=== PATIENT | female | born 1970 | race Two or more races ===

== ENCOUNTER 2019-11-21 18:12 | Inpatient (IN) | payer OTHER ==
[~2019-11-21] VITALS: Ht 162.6 cm; Wt 72.4 kg
[2019-11-21] MEDS ORDERED: fentaNYL PF VIAL 100 MCG/2 ML VIAL IVP ONE ×2 (18:30→18:45)
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
[2019-11-21] MEDS ORDERED: ETOMIDATE 20 MG/10 ML VIAL. IV ONE (18:45)
[2019-11-21 18:53] LABS: BASO # 0.1 x10^3/uL (0.0-0.2); BASO % 1 % (0-3); EOS # 0.1 x10^3/uL (0.0-0.7); EOS % 2 % (0-3); HEMATOCRIT 40.1 % (36.0-47.0); HEMOGLOBIN 13.5 g/dL (12.0-15.5); LYMPH % 30 % (24-48); MEAN CORPUSCULAR HEMOGLOBIN 30 pg (25-35); MEAN CORPUSCULAR HGB CONC 34 g/dL (31-37); MEAN CORPUSCULAR VOLUME 89 fL (79-100); MONO # 0.4 x10^3/uL (0.0-1.1); MONO % 6 % (0-9); NEUT # 4.1 x10^3/uL (1.8-7.7); NEUT % 61 % (31-73); PLATELET COUNT 225 x10^3/uL (140-400); RED BLOOD COUNT 4.53 x10^6/uL (3.50-5.40); WHITE BLOOD COUNT 6.7 x10^3/uL (4.0-11.0)
[2019-11-21 19:02] LABS: CREATININE 0.8 mg/dL (0.6-1.0); GFR 75.6; POTASSIUM 3.4 mmol/L (3.5-5.1)
[2019-11-21 19:08] LABS: ALBUMIN 3.8 g/dL (3.4-5.0); ALBUMIN/GLOBULIN RATIO 1.2 (1.0-1.7); MAGNESIUM 2.2 mg/dL (1.8-2.4); TOTAL BILIRUBIN 0.1 mg/dL (0.2-1.0); TOTAL PROTEIN 7.1 g/dL (6.4-8.2)
--- NOTE | 2019-11-21 19:22 | RAD ---
Exam: CT head and cervical spine without contrast INDICATION: Pain status post fall from 10 feet height, distracting injury TECHNIQUE: Sequential axial images through the head and cervical spine were obtained without the administration of IV contrast. Comparisons: None FINDINGS: Head: No focal parenchymal lesion or hemorrhage is identified. There is no midline shift or sulcal effacement. No acute vascular territory infarction is identified. Figueredo-white distinction is preserved. The ventricular system is within normal limits without compression hydrocephalus. The basal cisterns are well maintained. The visualized portions of the paranasal sinuses and mastoid air cells are well-pneumatized. No acute fractures. Cervical spine: Vertebral body heights and alignment are well-maintained. Fracture to the cervical spine is not identified. No significant spondylotic change in cervical spine. Visualized paraspinal soft tissues are unremarkable. IMPRESSION: 1. No acute intracranial abnormality. 2. Negative CT C-spine for acute traumatic injury. Exposure: One or more of the following in the visualized dose reduction techniques were utilized for this examination: 1. Automated exposure control 2. Adjustment of the MA and/or KV according to patient size Use of iterative of reconstructive technique Electronically signed by: Oh Goldberg MD (11/21/2019 7:19 PM) [id number]
--- NOTE | 2019-11-21 19:32 | RAD ---
CHEST AP ONLY, ANKLE RIGHT 3V, KNEE RIGHT 3V, PELVIS History: Cough, perioperative, fall from 10 feet Comparison: None. CHEST: Findings: AP view of the chest is submitted. Heart size is considered within normal limits. There is no convincing pleural fluid or pneumothorax, although limited evaluation in supine patient. No significant lung infiltrate is identified. No displaced rib fracture is identified by radiographs. Impression: 1. No convincing acute abnormality is identified. Right ankle radiographs: FINDINGS: 3 views of the right ankle are submitted. There is very comminuted and displaced and impacted fracture of the distal tibia with overriding of fracture fragments, superimposed over the talus. There is angulation at the level of the talus, apex directed more medially. There is also degree of rotation.. Proximal tibia fragments are displaced. Underlying talar fracture is difficult to exclude. IMPRESSION: 1.There is impacted, comminuted, and displaced fracture of the distal tibia, angulation or rotation of the adjacent talus. Underlying talar fracture is difficult to exclude. AP pelvis: FINDINGS: AP view of the pelvis is submitted. No acute fracture or dislocation is identified by radiograph. IMPRESSION: 1.No acute osseous abnormality is identified by radiograph. Right knee radiographs FINDINGS: 3 views of the right knee are submitted. No acute fracture or dislocation is identified. There is mild osteoarthritic change of the patellofemoral articulation. IMPRESSION: 1.No acute fracture is identified of the right knee by radiographs. Electronically signed by: Hudson Jade MD (11/21/2019 7:28 PM) [facility]
[2019-11-21 19:35] VITALS: BP 152/73
--- NOTE | 2019-11-21 20:13 | RAD ---
Exam: Right ankle 3 views INDICATION: Fracture/dislocation TECHNIQUE: Frontal, lateral and oblique views of the right ankle Comparisons: None FINDINGS: Evaluation of fine osseous detail limited secondary to overlying splint material. Comminuted distal tibia fracture is again noted improved alignment when compared to the prior exam. No other fractures are seen. Bone mineralization is normal. IMPRESSION: Improved alignment at the comminuted distal tibia fracture. Electronically signed by: Oh Goldberg MD (11/21/2019 8:10 PM) [id number]
[2019-11-21] MEDS ORDERED: KETOROLAC 15 MG/ML VIAL. IVP ONE (20:15)
[2019-11-21] MEDS ORDERED: IV NORMAL SALINE 1000ML BAG 1,000 ML IV ONE (20:15)
[2019-11-21] MEDS ORDERED: ONDANSETRON PF 4 MG/2 ML VIAL. IV PRN (20:15)
[2019-11-21 20:24] LABS: PROTHROMBIN TIME PATIENT 13.5 SEC (11.7-14.0)
[2019-11-21 21:31] VITALS: BP 131/69
[2019-11-22] VITALS (11 sets, daily range): BP systolic 106–153; BP diastolic 54–82
[2019-11-22] MEDS: fentaNYL PF VIAL 100 MCG/2 ML VIAL IV PRN ×10 (00:19→21:36)
[2019-11-22] MEDS: KETOROLAC 15 MG/ML VIAL. IVP SCH ×4 (01:15→20:01)
[2019-11-22] MEDS ORDERED: GABA-585 PO (01:20)
--- NOTE | 2019-11-22 08:21 | PDOC2 ---
CONSULT Date of Consult Date of Consult DATE: 11/22/19 TIME: 08:00 Reason for Consult Reason for Consult: Fall from a ladder and right ankle pain Referring Physician Referring Physician: Dr. Gonzáles Identification/Chief Complaint Chief Complaint Right ankle pain. Source Source: Caregiver, Chart review, Patient History of Present Illness Reason for Visit: Patient was at her home on a ladder approximately 10 feet in the air cleaning out gutters when she fell landing onto both feet primarily on the right ankle. Immediately had right ankle pain and was brought to [facility] by EMS. Past Medical History Cardiovascular: No pertinent hx Past Surgical History Past Surgical History: Social History Quit ALCOHOL: occassional (Patient drinks wine occasionally) Current Problem List Problem List Problems Medical Problems: (1) Ankle fracture, right Status: Acute (2) Fall from ladder Status: Acute Current Medications Current Medications Current Medications Fentanyl Citrate (Fentanyl 2ml Vial) 50 mcg 1X ONCE IVP Last administered on 11/21/19at 18:40; Start 11/21/19 at 18:30; Stop 11/21/19 at 18:32; Status DC Fentanyl Citrate (Fentanyl 2ml Vial) 100 mcg 1X ONCE IVP Last administered on 11/21/19at 19:22; Start 11/21/19 at 18:45; Stop 11/21/19 at 18:47; Status DC Etomidate (Amidate) 10 mg 1X ONCE IV Last administered on 11/21/19at 19:20; Start 11/21/19 at 18:45; Stop 11/21/19 at 18:47; Status DC Ketorolac Tromethamine (Toradol 15mg Vial) 15 mg 1X ONCE IVP Last administered on 11/21/19at 20:30; Start 11/21/19 at 20:15; Stop 11/21/19 at 20:16; Status DC Ondansetron HCl (Zofran) 4 mg PRN Q8HRS PRN IV NAUSEA/VOMITING; Start 11/21/19 at 20:15; Stop 11/22/19 at 20:14 Fentanyl Citrate (Fentanyl 2ml Vial) 50 mcg PRN Q2HRS PRN IV PAIN Last administered on 11/22/19at 04:38; Start 11/21/19 at 20:15 Ketorolac Tromethamine (Toradol 15mg Vial) 15 mg Q6H IVP Last administered on 11/22/19at 01:15; Start 11/22/19 at 02:00; Stop 11/27/19 at 01:59 Sodium Chloride 1,000 ml @ 100 mls/hr 1X ONCE IV Last administered on 11/21/19at 20:31; Start 11/21/19 at 20:15; Stop 11/22/19 at 06:15; Status DC Active Scripts Active Reported Gabapentin (Gabapentin) 100 Mg Capsule 100 Mg PO TID Allergies Allergies: Coded Allergies: No Known Drug Allergies (Unverified , 11/21/19) Physical Exam General: Alert, Oriented X3, Cooperative, moderate distress Extremities: No clubbing, No cyanosis, Normal pulses MUSCULOSKELETAL: Abnormal exam of right (Right ankle in a splint from the ER. Patient does have sensation on the toes distally on the right lower extremity. Patient is able to wiggle her toes on the right foot. Full range of motion of left lower extremity knee ankle and foot.) Vitals VITALS Vital Signs Date Time Temp Pulse Resp B/P (MAP) Pulse Ox O2 Delivery O2 Flow Rate FiO2 11/22/19 07:00 98.0 80 18 112/58 (76) 100 Room Air 98.0 11/22/19 00:49 5.0 Labs Labs Laboratory Tests Test 11/21/19 18:38 11/21/19 20:03 White Blood Count 6.7 x10^3/uL (4.0-11.0) Red Blood Count 4.53 x10^6/uL (3.50-5.40) Hemoglobin 13.5 g/dL (12.0-15.5) Hematocrit 40.1 % (36.0-47.0) Mean Corpuscular Volume 89 fL (79-100) Mean Corpuscular Hemoglobin 30 pg (25-35) Mean Corpuscular Hemoglobin Concent 34 g/dL (31-37) Red Cell Distribution Width 13.0 % (11.5-14.5) Platelet Count 225 x10^3/uL (140-400) Neutrophils (%) (Auto) 61 % (31-73) Lymphocytes (%) (Auto) 30 % (24-48) Monocytes (%) (Auto) 6 % (0-9) Eosinophils (%) (Auto) 2 % (0-3) Basophils (%) (Auto) 1 % (0-3) Neutrophils # (Auto) 4.1 x10^3/uL (1.8-7.7) Lymphocytes # (Auto) 2.0 x10^3/uL (1.0-4.8) Monocytes # (Auto) 0.4 x10^3/uL (0.0-1.1) Eosinophils # (Auto) 0.1 x10^3/uL (0.0-0.7) Basophils # (Auto) 0.1 x10^3/uL (0.0-0.2) Sodium Level 140 mmol/L (136-145) Potassium Level 3.4 mmol/L (3.5-5.1) Chloride Level 105 mmol/L (98-107) Carbon Dioxide Level 25 mmol/L (21-32) Anion Gap 10 (6-14) Blood Urea Nitrogen 21 mg/dL (7-20) Creatinine 0.8 mg/dL (0.6-1.0) Estimated GFR (Cockcroft-Gault) 75.6 BUN/Creatinine Ratio 26 (6-20) Glucose Level 108 mg/dL (70-99) Calcium Level 9.0 mg/dL (8.5-10.1) Magnesium Level 2.2 mg/dL (1.8-2.4) Total Bilirubin 0.1 mg/dL (0.2-1.0) Aspartate Amino Transf (AST/SGOT) 22 U/L (15-37) Alanine Aminotransferase (ALT/SGPT) 23 U/L (14-59) Alkaline Phosphatase 105 U/L (46-116) Creatine Kinase 180 U/L (26-192) Creatine Kinase MB (Mass) 1.4 ng/mL (0.0-3.6) Creatine Kinase MB Relative Index 0.8 % (0-4) Troponin I Quantitative < 0.017 ng/mL (0.000-0.055) Total Protein 7.1 g/dL (6.4-8.2) Albumin 3.8 g/dL (3.4-5.0) Albumin/Globulin Ratio 1.2 (1.0-1.7) Prothrombin Time 13.5 SEC (11.7-14.0) Prothromb Time International Ratio 1.1 (0.8-1.1) Activated Partial Thromboplast Time 25 SEC (24-38) Laboratory Tests Test 10/11/20 18:38 11/21/19 20:03 White Blood Count 6.7 x10^3/uL (4.0-11.0) Red Blood Count 4.53 x10^6/uL (3.50-5.40) Hemoglobin 13.5 g/dL (12.0-15.5) Hematocrit 40.1 % (36.0-47.0) Mean Corpuscular Volume 89 fL (79-100) Mean Corpuscular Hemoglobin 30 pg (25-35) Mean Corpuscular Hemoglobin Concent 34 g/dL (31-37) Red Cell Distribution Width 13.0 % (11.5-14.5) Platelet Count 225 x10^3/uL (140-400) Neutrophils (%) (Auto) 61 % (31-73) Lymphocytes (%) (Auto) 30 % (24-48) Monocytes (%) (Auto) 6 % (0-9) Eosinophils (%) (Auto) 2 % (0-3) Basophils (%) (Auto) 1 % (0-3) Neutrophils # (Auto) 4.1 x10^3/uL (1.8-7.7) Lymphocytes # (Auto) 2.0 x10^3/uL (1.0-4.8) Monocytes # (Auto) 0.4 x10^3/uL (0.0-1.1) Eosinophils # (Auto) 0.1 x10^3/uL (0.0-0.7) Basophils # (Auto) 0.1 x10^3/uL (0.0-0.2) Sodium Level 140 mmol/L (136-145) Potassium Level 3.4 mmol/L (3.5-5.1) Chloride Level 105 mmol/L (98-107) Carbon Dioxide Level 25 mmol/L (21-32) Anion Gap 10 (6-14) Blood Urea Nitrogen 21 mg/dL (7-20) Creatinine 0.8 mg/dL (0.6-1.0) Estimated GFR (Cockcroft-Gault) 75.6 BUN/Creatinine Ratio 26 (6-20) Glucose Level 108 mg/dL (70-99) Calcium Level 9.0 mg/dL (8.5-10.1) Magnesium Level 2.2 mg/dL (1.8-2.4) Total Bilirubin 0.1 mg/dL (0.2-1.0) Aspartate Amino Transf (AST/SGOT) 22 U/L (15-37) Alanine Aminotransferase (ALT/SGPT) 23 U/L (14-59) Alkaline Phosphatase 105 U/L (46-116) Creatine Kinase 180 U/L (26-192) Creatine Kinase MB (Mass) 1.4 ng/mL (0.0-3.6) Creatine Kinase MB Relative Index 0.8 % (0-4) Troponin I Quantitative < 0.017 ng/mL (0.000-0.055) Total Protein 7.1 g/dL (6.4-8.2) Albumin 3.8 g/dL (3.4-5.0) Albumin/Globulin Ratio 1.2 (1.0-1.7) Prothrombin Time 13.5 SEC (11.7-14.0) Prothromb Time International Ratio 1.1 (0.8-1.1) Activated Partial Thromboplast Time 25 SEC (24-38) Images Images EKG: EKG: @1918 Normal sinus rhythm at [address] elevation or depression Inverted T waves in V1 QRS 80 ms QT 340 ms QTc 410 ms Radiology/Procedures: Radiology/Procedures: CHEST AP ONLY, ANKLE RIGHT 3V, KNEE RIGHT 3V, PELVIS History: Cough, perioperative, fall from 10 feet Comparison: None. CHEST: Findings: AP view of the chest is submitted. Heart size is considered within normal limits. There is no convincing pleural fluid or pneumothorax, although limited evaluation in supine patient. No significant lung infiltrate is identified. No displaced rib fracture is identified by radiographs. Impression: 1. No convincing acute abnormality is identified. Right ankle radiographs: FINDINGS: 3 views of the right ankle are submitted. There is very comminuted and displaced and impacted fracture of the distal tibia with overriding of fracture fragments, superimposed over the talus. There is angulation at the level of the talus, apex directed more medially. There is also degree of rotation.. Proximal tibia fragments are displaced. Underlying talar fracture is difficult to exclude. IMPRESSION: 1.There is impacted, comminuted, and displaced fracture of the distal tibia, angulation or rotation of the adjacent talus. Underlying talar fracture is difficult to exclude. AP pelvis: FINDINGS: AP view of the pelvis is submitted. No acute fracture or dislocation is identified by radiograph. IMPRESSION: 1.No acute osseous abnormality is identified by radiograph. Right knee radiographs FINDINGS: 3 views of the right knee are submitted. No acute fracture or dislocation is identified. There is mild osteoarthritic change of the patellofemoral articulation. IMPRESSION: 1.No acute fracture is identified of the right knee by radiographs. Electronically signed by: Hudson Jade MD (11/21/2019 7:28 PM) [facility] Exam: Right ankle 3 views (post-reduction) INDICATION: Fracture/dislocation TECHNIQUE: Frontal, lateral and oblique views of the right ankle Comparisons: None FINDINGS: Evaluation of fine osseous detail limited secondary to overlying splint material. Comminuted distal tibia fracture is again noted improved alignment when compared to the prior exam. No other fractures are seen. Bone mineralization is normal. IMPRESSION: Improved alignment at the comminuted distal tibia fracture. Electronically signed by: Oh Goldberg MD (11/21/2019 8:10 PM) [id number] Assessment/Plan Assessment/Plan 49-year-old female with a fall from a ladder at home while cleaning gutters and landing onto her right ankle. Was brought to [facility] ER and placed in the splint. X-rays show comminuted displaced distal tibial fracture, with rotation of the tibia, and medial malleolus fracture. Patient is n.p.o. at this time and will require surgical fixation for repair. We will discuss with staff on planning for surgery. AJITH CUNNINGHAM APRN Nov 22, 2019 08:21
--- NOTE | 2019-11-22 08:50 | PDOC2 ---
LUIS FONSECA DIRECTOR OF INFORMATICS 11/22/19 0849: CONSULT Date of Consult Date of Consult DATE: 11/22/19 TIME: 08:44 Reason for Consult Reason for Consult: trauma Referring Physician Referring Physician: ER Identification/Chief Complaint Chief Complaint fall from ladder Source Source: Chart review, Patient History of Present Illness Reason for Visit: fall from ladder 10 feet, fell landing on feet, right ankle pain immediately. Noted on xrays to have fracture of distal tibia. No head trauma, no abdominal injury, no pain elsewhere. No n/v, no diarrhea. No LOC Past Medical History Cardiovascular: No pertinent hx Past Surgical History Past Surgical History: Family History Family History: Other (noncontributory to current illness ) Social History Quit ALCOHOL: occassional (Patient drinks wine occasionally) Current Problem List Problem List Problems Medical Problems: (1) Ankle fracture, right Status: Acute (2) Fall from ladder Status: Acute Current Medications Current Medications Current Medications Fentanyl Citrate (Fentanyl 2ml Vial) 50 mcg 1X ONCE IVP Last administered on 11/21/19at 18:40; Start 11/21/19 at 18:30; Stop 11/21/19 at 18:32; Status DC Fentanyl Citrate (Fentanyl 2ml Vial) 100 mcg 1X ONCE IVP Last administered on 11/21/19at 19:22; Start 11/21/19 at 18:45; Stop 11/21/19 at 18:47; Status DC Etomidate (Amidate) 10 mg 1X ONCE IV Last administered on 11/21/19at 19:20; Start 11/21/19 at 18:45; Stop 11/21/19 at 18:47; Status DC Ketorolac Tromethamine (Toradol 15mg Vial) 15 mg 1X ONCE IVP Last administered on 11/21/19at 20:30; Start 11/21/19 at 20:15; Stop 11/21/19 at 20:16; Status DC Ondansetron HCl (Zofran) 4 mg PRN Q8HRS PRN IV NAUSEA/VOMITING; Start 11/21/19 at 20:15; Stop 11/22/19 at 20:14 Fentanyl Citrate (Fentanyl 2ml Vial) 50 mcg PRN Q2HRS PRN IV PAIN Last administered on 11/22/19at 04:38; Start 11/21/19 at 20:15 Ketorolac Tromethamine (Toradol 15mg Vial) 15 mg Q6H IVP Last administered on 11/22/19at 08:23; Start 11/22/19 at 02:00; Stop 11/27/19 at 01:59 Sodium Chloride 1,000 ml @ 100 mls/hr 1X ONCE IV Last administered on 11/21/19at 20:31; Start 11/21/19 at 20:15; Stop 11/22/19 at 06:15; Status DC Active Scripts Active Reported Gabapentin (Gabapentin) 100 Mg Capsule 100 Mg PO TID Allergies Allergies: Coded Allergies: No Known Drug Allergies (Unverified , 11/21/19) ROS General: No: Chills, Other (fevers ) PSYCHOLOGICAL ROS: No: Anxiety, Depression Eyes: No Blurry vision, No Double vision HEENT: No: Heacaches, Sore Throat Hematological and Lymphatic: No: Bleeding Problems, Blood Clots Respiratory: No: Cough, Shortness of breath Cardiovascular: No Chest Pain, No Palpitations Gastrointestinal: No Nausea, No Vomiting, No Abdominal Pain Genitourinary: No Dysuria, No Incontinence Musculoskeletal: Yes Joint Pain, Yes Joint Swelling Neurological: Yes Impaired Coord/balance (fall); No Confusion Skin: No Pruritus, No Rash Physical Exam General: Alert, Oriented X3, Cooperative HEENT: Atraumatic, PERRLA Lungs: Clear to auscultation, Normal air movement Heart: Regular rate, Normal S1, Normal S2 Abdomen: Soft, No tenderness, No hepatosplenomegaly Extremities: No tenderness/swelling (right leg wrapped ) Neuro: Normal speech Psych/Mental Status: Mental status NL, Mood NL Vitals VITALS Vital Signs Date Time Temp Pulse Resp B/P (MAP) Pulse Ox O2 Delivery O2 Flow Rate FiO2 11/22/19 07:00 98.0 80 18 112/58 (76) 100 Room Air 98.0 11/22/19 00:49 5.0 Labs Labs Laboratory Tests Test 11/21/19 18:38 11/21/19 20:03 White Blood Count 6.7 x10^3/uL (4.0-11.0) Red Blood Count 4.53 x10^6/uL (3.50-5.40) Hemoglobin 13.5 g/dL (12.0-15.5) Hematocrit 40.1 % (36.0-47.0) Mean Corpuscular Volume 89 fL (79-100) Mean Corpuscular Hemoglobin 30 pg (25-35) Mean Corpuscular Hemoglobin Concent 34 g/dL (31-37) Red Cell Distribution Width 13.0 % (11.5-14.5) Platelet Count 225 x10^3/uL (140-400) Neutrophils (%) (Auto) 61 % (31-73) Lymphocytes (%) (Auto) 30 % (24-48) Monocytes (%) (Auto) 6 % (0-9) Eosinophils (%) (Auto) 2 % (0-3) Basophils (%) (Auto) 1 % (0-3) Neutrophils # (Auto) 4.1 x10^3/uL (1.8-7.7) Lymphocytes # (Auto) 2.0 x10^3/uL (1.0-4.8) Monocytes # (Auto) 0.4 x10^3/uL (0.0-1.1) Eosinophils # (Auto) 0.1 x10^3/uL (0.0-0.7) Basophils # (Auto) 0.1 x10^3/uL (0.0-0.2) Sodium Level 140 mmol/L (136-145) Potassium Level 3.4 mmol/L (3.5-5.1) Chloride Level 105 mmol/L (98-107) Carbon Dioxide Level 25 mmol/L (21-32) Anion Gap 10 (6-14) Blood Urea Nitrogen 21 mg/dL (7-20) Creatinine 0.8 mg/dL (0.6-1.0) Estimated GFR (Cockcroft-Gault) 75.6 BUN/Creatinine Ratio 26 (6-20) Glucose Level 108 mg/dL (70-99) Calcium Level 9.0 mg/dL (8.5-10.1) Magnesium Level 2.2 mg/dL (1.8-2.4) Total Bilirubin 0.1 mg/dL (0.2-1.0) Aspartate Amino Transf (AST/SGOT) 22 U/L (15-37) Alanine Aminotransferase (ALT/SGPT) 23 U/L (14-59) Alkaline Phosphatase 105 U/L (46-116) Creatine Kinase 180 U/L (26-192) Creatine Kinase MB (Mass) 1.4 ng/mL (0.0-3.6) Creatine Kinase MB Relative Index 0.8 % (0-4) Troponin I Quantitative < 0.017 ng/mL (0.000-0.055) Total Protein 7.1 g/dL (6.4-8.2) Albumin 3.8 g/dL (3.4-5.0) Albumin/Globulin Ratio 1.2 (1.0-1.7) Prothrombin Time 13.5 SEC (11.7-14.0) Prothromb Time International Ratio 1.1 (0.8-1.1) Activated Partial Thromboplast Time 25 SEC (24-38) Laboratory Tests Test 11/21/19 18:38 11/21/19 20:03 White Blood Count 6.7 x10^3/uL (4.0-11.0) Red Blood Count 4.53 x10^6/uL (3.50-5.40) Hemoglobin 13.5 g/dL (12.0-15.5) Hematocrit 40.1 % (36.0-47.0) Mean Corpuscular Volume 89 fL (79-100) Mean Corpuscular Hemoglobin 30 pg (25-35) Mean Corpuscular Hemoglobin Concent 34 g/dL (31-37) Red Cell Distribution Width 13.0 % (11.5-14.5) Platelet Count 225 x10^3/uL (140-400) Neutrophils (%) (Auto) 61 % (31-73) Lymphocytes (%) (Auto) 30 % (24-48) Monocytes (%) (Auto) 6 % (0-9) Eosinophils (%) (Auto) 2 % (0-3) Basophils (%) (Auto) 1 % (0-3) Neutrophils # (Auto) 4.1 x10^3/uL (1.8-7.7) Lymphocytes # (Auto) 2.0 x10^3/uL (1.0-4.8) Monocytes # (Auto) 0.4 x10^3/uL (0.0-1.1) Eosinophils # (Auto) 0.1 x10^3/uL (0.0-0.7) Basophils # (Auto) 0.1 x10^3/uL (0.0-0.2) Sodium Level 140 mmol/L (136-145) Potassium Level 3.4 mmol/L (3.5-5.1) Chloride Level 105 mmol/L (98-107) Carbon Dioxide Level 25 mmol/L (21-32) Anion Gap 10 (6-14) Blood Urea Nitrogen 21 mg/dL (7-20) Creatinine 0.8 mg/dL (0.6-1.0) Estimated GFR (Cockcroft-Gault) 75.6 BUN/Creatinine Ratio 26 (6-20) Glucose Level 108 mg/dL (70-99) Calcium Level 9.0 mg/dL (8.5-10.1) Magnesium Level 2.2 mg/dL (1.8-2.4) Total Bilirubin 0.1 mg/dL (0.2-1.0) Aspartate Amino Transf (AST/SGOT) 22 U/L (15-37) Alanine Aminotransferase (ALT/SGPT) 23 U/L (14-59) Alkaline Phosphatase 105 U/L (46-116) Creatine Kinase 180 U/L (26-192) Creatine Kinase MB (Mass) 1.4 ng/mL (0.0-3.6) Creatine Kinase MB Relative Index 0.8 % (0-4) Troponin I Quantitative < 0.017 ng/mL (0.000-0.055) Total Protein 7.1 g/dL (6.4-8.2) Albumin 3.8 g/dL (3.4-5.0) Albumin/Globulin Ratio 1.2 (1.0-1.7) Prothrombin Time 13.5 SEC (11.7-14.0) Prothromb Time International Ratio 1.1 (0.8-1.1) Activated Partial Thromboplast Time 25 SEC (24-38) Assessment/Plan Assessment/Plan right distal tibia from fall ortho involved no gen surg needs will sign off, available if needed WILFREDO RESENDIZ MD 11/22/19 0953: CONSULT Assessment/Plan Assessment/Plan Agree with above LUIS FONSECA DIRECTOR OF INFORMATICS Nov 22, 2019 08:49 WILFREDO RESENDIZ MD Nov 22, 2019 09:53
[2019-11-22] MEDS ORDERED: IV RINGERS,LACTATED 1000ML 1,000 ML IV SCH (08:59)
[2019-11-22] MEDS ORDERED: fentaNYL PF VIAL 100 MCG/2 ML VIAL IVP PRN ×2 (09:00)
[2019-11-22] MEDS ORDERED: LIDOCAINE 1% PF 2 ML VIAL. ID PRN (09:00)
[2019-11-22] MEDS ORDERED: MORPHINE SULFATE 2 MG/ML VIAL. IVP PRN (09:00)
[2019-11-22] MEDS ORDERED: ONDANSETRON PF 4 MG/2 ML VIAL. IVP PRN (09:00)
[2019-11-22] MEDS ORDERED: PROCHLORPERAZINE 10 MG/2 ML VIAL. IVP PRN (09:00)
[2019-11-22] MEDS ORDERED: HYDROmorphone 2 MG/ML VIAL IVP PRN (09:00)
[2019-11-22] MEDS ORDERED: PROPOFOL 10 MG/ML (20ML) VIAL. IV ONE (10:35)
[2019-11-22] MEDS ORDERED: DEXAMETHASONE SOD PHOS 4 MG/ML VIAL ONE (10:35)
[2019-11-22] MEDS ORDERED: LIDOCAINE 2% PF 5 ML VIAL. ONE (10:35)
[2019-11-22] MEDS ORDERED: ONDANSETRON PF 4 MG/2 ML VIAL. ONE (10:35)
[2019-11-22] MEDS ORDERED: fentaNYL PF VIAL 100 MCG/2 ML VIAL ONE (10:57)
--- NOTE | 2019-11-22 10:59 | NUR ---
Pt. down to OR via bed per transportation.
--- NOTE | 2019-11-22 12:22 | HP ---
ADMIT DATE: 11/21/2019 CHIEF COMPLAINT: Fall with ankle pain. HISTORY OF PRESENT ILLNESS: The patient is a pleasant 49-year-old healthy female who fell. She fell 10 feet from a ladder. She was cleaning a gutter. she now has ankle pain, rated at 10/10, it is worse with moving, better sitting still. She tried taking some [id number] meds but that did not work. She describes her pain as very irritating. We did some imaging. She does have a distal right comminuted tibial fracture. The patient has been admitted. She is going for surgery later today. PAST MEDICAL HISTORY: Benign. ALLERGIES: None. FAMILY HISTORY: Diabetes. SOCIAL HISTORY: She does not drink, smoke or take drugs. MEDICATIONS: Reviewed, please refer to the MRAD. REVIEW OF SYSTEMS: GENERAL: No history of weight change, weakness or fevers. SKIN: No bruising, hair changes or rashes. EYES: No blurred, double or loss of vision. NOSE AND THROAT: No history of nosebleeds, hoarseness or sore throat. HEART: No history of palpitations, chest pain or shortness of breath on exertion. LUNGS: Denies cough, hemoptysis, wheezing or shortness of breath. GASTROINTESTINAL: Denies changes in appetite, nausea, vomiting, diarrhea or constipation. GENITOURINARY: No history of frequency, urgency, hesitancy or nocturia. NEUROLOGIC: Denies history of numbness, tingling, tremor or weakness. PSYCHIATRIC: No history of panic, anxiety or depression. ENDOCRINE: No history of heat or cold intolerance, polyuria or polydipsia. EXTREMITIES: She complains of right leg pain and ankle pain. PHYSICAL EXAMINATION: VITALS: Within normal limits and are stable. GENERAL: No apparent distress. Alert and oriented. HEENT: Normal cephalic atraumatic, external auditory canals are patent EYES: Extraocular muscles are intact, pupils are equally round and reactive to light and accommodation MUSCULOSKELETAL: Well developed, well nourished, good range of motion ENDOCRINE: No thyromegaly was palpated LYMPHATICS: No cervical chain or axillary nodes were noted HEMATOPOIETIC: No bruising NECK: Supple, no JVD, no thyromegaly was noted. LUNGS: Clear to auscultation in all lung reardon without rhonchi or wheezing. HEART: RRR, S1, S2 present. Peripheral pulses intact, no obvious murmurs were noted. ABDOMEN: Soft, nontender. Positive bowel sounds no organomegaly, normal bowel sounds. EXTREMITIES: The right ankle is in a cast. NEUROLOGIC: Normal speech, normal tone. A and O x3, moves all extremities, no obvious focal deficits. PSYCHIATRIC: Normal affect, normal mood. Stable. SKIN: No ulcerations or rashes, good skin turgor, no jaundice. VASCULAR: Good capillary refill, neurovascular bundle appears to be intact. ASSESSMENT AND PLAN: Fall with ankle fracture. The patient has been admitted. We will consult Orthopedics. Home meds if possible. IV fluids, p.r.n. pain meds, p.r.n. Zofran, consult Orthopedics. Postoperatively, she is going to need aggressive physical therapy and occupational therapy. AMPARO ROLDAN DO DR: JOLEEN/emiliano JOB#: [id number] / [id number]
[2019-11-22] MEDS ORDERED: SEVOFLURANE 61 TO 120 MINUTES. IH ONE (13:51)
--- NOTE | 2019-11-22 15:34 | NUR ---
Pt. back from OR via bed. Rates pain at 4/10, states she is comfortable. EMELINA mendoza CDI.
--- NOTE | 2019-11-22 20:00 | PDOC4 ---
Operative Note Operative Note Date of surgery: 11/22/2019 Preoperative diagnosis: Right ankle fracture dislocation with tibial pilon fracture and medial malleolus fracture Postoperative diagnosis: Same Operative procedure: Operative reduction internal fixation of tibial pilon and medial malleolus fracture Surgeon: Mary Assistants: Sukumar Bernardo nurse practitioner, David benz assist Anesthesia: General Estimated blood loss: 25 cc Complications: None Operative indications: Patient is a 68-year-old female who fell off a ladder sustaining a right ankle fracture dislocation which was provisionally reduced and shows a tibial pilon and medial malleolus fracture both displaced. I had gone over with her the severity of the injury the normal alignment of the ankle and the necessity of surgical treatment for reduction and fixation of the fract ure. Likewise the expected weightbearing restrictions to allow healing and the possibility of infection nonhealing continued pain premature arthritis medical or other anesthetic complications among others all her questions were answered she wishes to proceed with surgical evaluation and treatment. Operative text: Patient was identified procedure verified patient placed in the supine position on the operating table. After adequate amounts of general anesthesia were administered the right lower extremity was prepped and draped in standard sterile fashion with a thigh tourniquet. After timeout was performed patient procedure identified and verified the right lower extremity was exsanguinated by Esmarch bandage tourniquet inflated to 300 mmHg and an incision was made over the medial malleolus which was subperiosteally dissected and anatomically reduced and fixated with a total of 2 cannulated 4.0 titanium screws and noted to be an anatomic position under fluoroscopic guidance. An additional anterior small incision was made over the lateral aspect of the anterior distal tibia and periarticular reduction forceps were used to achieve essentially anatomic reduction of the articular surface of the tibial pilon fracture and a total of 2 cannulated screws were placed in the reduced major anterior fragment achieving excellent reduction of the anterior fragment on fluoroscopic views and retaining near anatomic reduction of the ankle joint mortise and lateral fragment visible on the AP view. Further fixation of the fragments was accomplished with a medial distal tibial locking plate which was initially positioned and a locking screw placed to capture the anterior fragment and then the posterior fragment. Additional locking screw fixation was placed distally to ensure no joint penetration but excellent fixation obtained with again near anatomic reduction of the ankle joint mortise and distal tibial articulation. Shaft fixation was then carried out with nonlocking screws and all hardware placement and reduction were again checked under multiple fluoroscopic views and found to be excellent. The irrigation carried out normal saline solution closure accomplished with buried Vicryl's and skin closure with tru. A well-padded posterior splint was then placed toes were noted to be warm pink following deflation of the tourniquet patient was returned to recovery room in stable condition having tolerated procedure well. Sukumar Bernardo and David Pearson were present for the procedure and assisted in the patient positioning prepping draping retraction and closure and dressings MURRAY PEÑA MD Nov 22, 2019 20:00
[2019-11-23] MEDS: fentaNYL PF VIAL 100 MCG/2 ML VIAL IV PRN ×2 (00:54→10:58)
[2019-11-23] MEDS: KETOROLAC 15 MG/ML VIAL. IVP SCH ×3 (02:07→14:14)
[2019-11-23 03:00] VITALS: BP 110/58
[2019-11-23 07:15] VITALS: BP 108/64
[2019-11-23 11:08] VITALS: BP 126/76
--- NOTE | 2019-11-23 11:49 | NUR ---
Called Dr. Weber regarding patient pain med to switch from IV to pill. Message was delivered and waiting for call back.
--- NOTE | 2019-11-23 12:11 | SNU/HH DC ---
DISCHARGE WITH HOME HEALTH DISCHARGE INFORMATION: Final Diagnosis: Problems Medical Problems: (1) Ankle fracture, right Status: Acute (2) Fall from ladder Status: Acute Condition on Discharge: Stable CODE STATUS: Code Status: Full HOME HEALTH: Face to Face: I certify this patient is under my care and that I, or a nurse practitioner or physician's sociology research assistant working with me, had a face to face encounter that meets the physician face to face encounter requirements with this patient on []. Medical Complications: Other (Recent ankle fracture after fall from a ladder) Residential For: Assess & Educate Safety RN For Eval/Treatment: Yes Physical Therapy For: Evalulation/Treatment Occupational Therapy For: Evaluation/Treatment Home Health Aide For: Self-care TECHNICAL MAINTENANCE SPECIALIST For: Community Resources Pt Meets Homebound Status: Poor coordination w/ amb. POST DISCHARGE ORDERS: DIET AFTER DISCHARGE: ADA CERTIFICATION STATEMENT: Certification Statement: Certification Statement: Based on the above finding, I certify that this patient is confined to the home and needs intermittent intermediate care, physical therapy and/or speech therapy, or continues to need occupational therapy.~ This patient is under my care, and I have initiated the establishment of the plan of care.~ This patient will be followed by myself or a community physician who will periodically review the plan of care. Home Meds Reported Medications Gabapentin (GABAPENTIN ) 100 Mg Capsule, 100 MG PO TID for NEUROGENIC PAIN, CAP 11/22/19 AMPARO ROLDAN III DO Nov 23, 2019 12:11
--- NOTE | 2019-11-23 12:12 | PDOC ---
[facility] PROGRESS NOTE Date of Service DOS: DATE: 11/23/19 TIME: 12:11 Chief Complaint Chief Complaint Postop day 1 right ankle fracture ORIF History of Present Illness History of Present Illness 11/22/2021 Patient seen and examined Discussed with case management Discussed with RN Discussed with her son Patient wants to go home I left a prescription for some as needed [facility] Vitals/I&O Vitals/I&O: Vital Signs Date Time Temp Pulse Resp B/P (MAP) Pulse Ox O2 Delivery O2 Flow Rate FiO2 11/23/19 11:39 Room Air 11/23/19 11:08 97.4 81 18 126/76 (93) 96 97.4 11/23/19 01:24 2.0 l I & O 11/22/19 11/22/19 11/23/19 15:00 23:00 07:00 Intake Total 1150 ml Output Total 25 ml 250 ml Balance 1125 ml -250 ml Physical Exam General: Alert, Oriented X3, Cooperative Heart: Regular rate, Normal S1, Normal S2 Abdomen: Soft, No tenderness, No hepatosplenomegaly Extremities: No tenderness/swelling (Right lower extremity in cast) Skin: No rashes Assessment and Plan Assessmemt and Plan Problems Medical Problems: (1) Ankle fracture, right Status: Acute (2) Fall from ladder Status: Acut Plan is discharge Comment Review of Relevant I have reviewed the following items yousif (where applicable) has been applied. Medications: Current Medications Medications (Trade) Dose Ordered Sig/Marvin Route PRN Reason Start Time Stop Time Status Last Admin Dose Admin Cefazolin Sodium/ Dextrose 50 ml @ 100 mls/hr 1X ONCE IV 11/22/19 12:30 11/22/19 12:59 DC 11/22/19 12:36 Justifications for Admission Other Justification AMPARO ROLDAN III DO Nov 23, 2019 12:12
[2019-11-23 15:16] VITALS: BP 116/63
--- NOTE | 2019-11-23 18:04 | NUR ---
Patient discharged home today, received script, and understand discharge instructions
== END 2019-11-23 17:00 | disposition home health service (06) | DRG 494 ==
LOC: ER 18:12 → 4 NORTH 20:36
PROVIDERS: ADMIT Family Medicine; ATTEND Family Medicine
PROC: 0QSG04Z Reposition Right Tibia with Internal Fixation Device, Open Approach (ICD-10-PCS; principal; 2019-11-22 11:50)
DX: S82.871A Displaced pilon fracture of right tibia, initial encounter for closed fracture (principal); S92.101A Unspecified fracture of right talus, initial encounter for closed fracture; Z20.828 Contact with and (suspected) exposure to other viral communicable diseases; W11.XXXA Fall on and from ladder, initial encounter; Y93.89 Activity, other specified; Y92.098 Other place in other non-institutional residence as the place of occurrence of the external cause; Y99.8 Other external cause status; Z83.3 Family history of diabetes mellitus
CPT/HCPCS: 36415; 70450; 71045; 72125; 72170; 73562; 73610; 76000; 80053; 82553; 83735; 84484; 85025; 85610; 85730; 87426; 96361; 96374; 96375; 96376; 99285; A7015; J0690; J1100; J1885; J2405; J2704; J3010; J3490; J7030; J7120; 97116-GP; 97530-GP; 97535-GO; C1713; G0378; U0003-CS